=== PATIENT | female | born 1965 | race African-American/Black ===

== ENCOUNTER 2017-05-11 07:42 | Emergency (ER) | payer OTHER ==
[~2017-05-11] VITALS: Ht 165.1 cm; Wt 94.1 kg
[2017-05-11 07:46] VITALS: Ht 165.1 cm; Wt 94.1 kg
[2017-05-11] MEDS ORDERED: SOD CHLORIDE 0.9% 1,000 ML IV STA (08:02)
[2017-05-11] MEDS ORDERED: DIPHENHYDRAMINE 50 MG INJ IV STA (08:02)
[2017-05-11] MEDS ORDERED: METOCLOPRAMIDE 10 MG INJ IV STA (08:02)
--- NOTE | 2017-05-11 08:59 | RADRPT ---
PROCEDURE: CT Brain without contrast. CLINICAL INDICATION: Pain, headache TECHNIQUE: Routine CT scan of the brain was performed on a high resolution multi detector scanner without intravenous contrast. One or more of the following dose reduction techniques were used: Auto mated exposure control; Adjustment of the mA and/or kV according to patient size; Use of iterative r econstruction technique. CTDI = 43 mGy. DLP = 823 mGy-cm. DICOM images are available. COMPARISON: No prior relevant examinations are available for comparison. FINDINGS: Hemorrhage: No evidence of intracranial hemorrhage. Acute ischemic changes: No evidence of acute ischemic changes. Mass effect: None. Parenchymal volume: Within normal limits for age. Ventricular system: Concordant with parenchymal volume. Cavum of the septum pellucidum is noted. Chronic changes: Mild chronic-appearing microvascular ischemic changes of the supratentorial white m atter. Extracranial soft tissues: Unremarkable. Calvarium: No fractures. Paranasal sinuses: Visualized paranasal sinuses are clear. Mastoid air cells: Visualized mastoid air cells are clear. IMPRESSION: No acute intracranial abnormalities. Mild chronic-appearing microvascular ischemic changes of the supratentorial white matter. RPTAT: AADD .Trev De La O MD, Date Time Electronically viewed and signed by .Trev De La O MD, on 05/11/2017 08:59 .Naomie/
--- NOTE | 2017-05-11 09:15 | RADRPT ---
PROCEDURE: XR Chest. CLINICAL INDICATION: Dyspnea. TECHNIQUE: XR CHEST AP PORTABLE COMPARISON: None available. FINDINGS: The lungs are clear. No focal opacification is seen. No pneumothorax or pleural effusion is seen. The cardiomediastinal silhouette is unremarkable. The osseous structures are grossly unremarkable. IMPRESSION: No evidence of acute cardiopulmonary disease. RPTAT: JJ .Khurram Bautista MD, MD Date Time Electronically viewed and signed by .Khurram Bautista MD, on 05/11/2017 09:14 .A/
[2017-05-11 11:53] LABS: BASOPHILS % 0.7 % (0.0-2.0); EOSINOPHILS # 0.1 10^3/ul (0.0-0.5); EOSINOPHILS % 2.4 % (0.0-7.0); HEMATOCRIT 35.2 % (37.0-47.0); HEMOGLOBIN 10.7 g/dl (12.0-16.0); LYMPHOCYTES # 2.3 10^3/ul (0.8-2.9); LYMPHOCYTES % 42.9 % (15.0-51.0); MEAN CORPUSCULAR HEMOGLOBIN 24.4 pg (29.0-33.0); MEAN CORPUSCULAR HGB CONC 30.4 g/dl (32.0-37.0); MEAN CORPUSCULAR VOLUME 80.2 fl (82.0-101.0); MEAN PLATELET VOLUME 8.8 fl (7.4-10.4); MONOCYTE # 0.4 10^3/ul (0.3-0.9); MONOCYTES % 6.8 % (0.0-11.0); NEUTROPHIL # 2.5 10^3/ul (1.6-7.5); PLATELET COUNT 435 10^3/UL (140-415); RED BLOOD COUNT 4.39 10^6/ul (4.20-5.40); RED CELL DISTRIBUTION WIDTH 13.9 % (11.5-14.5); WHITE BLOOD COUNT 5.4 10^3/ul (4.8-10.8)
[2017-05-11 12:18] LABS: ANION GAP 11 (8-16); BLOOD UREA NITROGEN 9 mg/dl (7-20); CALCIUM 9.4 mg/dl (8.4-10.2); CARBON DIOXIDE 30 mmol/L (21-31); CHLORIDE 104 mmol/L (97-110); CREATININE 0.65 mg/dl (0.44-1.00); GLUCOSE 91 mg/dl (70-220); POTASSIUM 4.3 mmol/L (3.5-5.1); SODIUM 141 mmol/L (135-144)
[2017-05-11 12:32] LABS: TROPONIN-I < 0.012 ng/ml (0.00-0.12)
[2017-05-11] MEDS ORDERED: HYDR25TA6 PO (12:33)
[2017-05-11] MEDS ORDERED: FIORICET PO (12:34)
[2017-05-11 12:54] VITALS: BP 110/73; PULSE 75; RESP 14
--- NOTE | 2017-05-11 14:04 | ERD ---
ER Documentation Chief Complaint Chief Complaint dizziness and neck pain x4 days HPI This is a 52-year-old female history of borderline hypertension, migraine headache. The patient presents with at least 4 days of elevated blood pressure. Today upon arrival in the 200s. She is describing headache that is gradual onset bandlike with bilateral base of the neck pain that is very consistent with her migraine headaches in the past. She takes a triptan at home. She denies any chest pain or pleuritic pain no exertional symptoms fevers or chills. ROS All systems reviewed and are negative except as per history of present illness. Medications Home Meds Active Scripts Acetamin/Butalbital/Caffeine* (Fioricet*) [id number] Tab, 1 TAB PO Q6H Y for PAIN, #30 TAB Prov:CELESTE PERALES MD 05/11/17 Hydrochlorothiazide* (Hydrochlorothiazide*) 25 Mg Tab, 25 MG PO DAILY, #30 TAB Prov:CELESTE PERALES MD 05/11/17 Allergies Allergies: Coded Allergies: No Known Allergy (Unverified , 05/11/17) PMhx/Soc History of Surgery: Yes (ectopic preganancy) Anesthesia Reaction: No Hx Neurological Disorder: No Hx Respiratory Disorders: No Hx Cardiac Disorders: No Hx Psychiatric Problems: No Hx Miscellaneous Medical Probl: No Hx Alcohol Use: No Hx Substance Use: No Hx Tobacco Use: No Smoking Status: Never smoker FmHx Family History: No diabetes Physical Exam Vitals Vital Signs Date Time Temp Pulse Resp B/P Pulse Ox O2 Delivery O2 Flow Rate FiO2 05/11/17 12:54 75 14 110/73 100 Room Air 05/11/17 10:36 70 20 150/100 100 Room Air 05/11/17 09:29 67 18 153/82 100 Room Air 05/11/17 07:46 97.6 82 18 191/88 100 Physical Exam General: Well developed, well nourished, no acute distress Head: Normocephalic, atraumatic. Eyes: Pupils equally reactive, EOM intact ENT: Moist mucous membranes Neck: Supple, no lymphadenopathy Respiratory: Lungs clear bilaterally, no distress Cardiovascular: RRR, no murmurs, rubs, or gallops Abdominal: Soft, non-tender, non-distended, no peritoneal signs : Deferred MSK: No edema, no unilateral swelling, 5/5 strength Neurologic: Alert and oriented, moving all extremities, normal speech, no focal weakness, no cerebellar signs steady gait, normal rapid alternating movements Skin: No rash Psych: Normal mood Result Diagram: 05/11/17 1120 05/11/17 1120 Results 24 hrs Laboratory Tests Test 05/11/17 11:20 White Blood Count 5.410^3/ul Red Blood Count 4.3910^6/ul Hemoglobin 10.7g/dl Hematocrit 35.2% Mean Corpuscular Volume 80.2fl Mean Corpuscular Hemoglobin 24.4pg Mean Corpuscular Hemoglobin Concent 30.4g/dl Red Cell Distribution Width 13.9% Platelet Count 62576^3/UL Mean Platelet Volume 8.8fl Neutrophils % 47.0% Lymphocytes % 42.9% Monocytes % 6.8% Eosinophils % 2.4% Basophils % 0.7% Nucleated Red Blood Cells % 0.0/100WBC Neutrophils # 2.510^3/ul Lymphocytes # 2.310^3/ul Monocytes # 0.410^3/ul Eosinophils # 0.110^3/ul Basophils # 0.010^3/ul Nucleated Red Blood Cells # 0.010^3/ul Sodium Level 141mmol/L Potassium Level 4.3mmol/L Chloride Level 104mmol/L Carbon Dioxide Level 30mmol/L Anion Gap 11 Blood Urea Nitrogen 9mg/dl Creatinine 0.65mg/dl Glucose Level 91mg/dl Calcium Level 9.4mg/dl Troponin I < 0.012ng/ml Current Medications Medications (Trade) Dose Ordered Sig/Tonja Route PRN Reason Start Time Stop Time Status Last Admin Dose Admin Sodium Chloride (NS) 1,000 ml @ 1,000 mls/hr Q1H STAT IV 05/11/17 08:02 05/11/17 09:01 DC 05/11/17 09:18 Metoclopramide HCl (Reglan) 10 mg ONCE STAT IV 05/11/17 08:02 05/11/17 08:03 DC 05/11/17 09:19 Diphenhydramine HCl (Benadryl) 25 mg ONCE STAT IV 05/11/17 08:02 05/11/17 08:03 DC 05/11/17 09:19 Procedures/MDM EKG, MONITORS, & DIAGNOSTIC IMAGING: EKG: I reviewed and interpreted a 12-lead EKG. Rhythm: Normal sinus rhythm Ectopy: None Intervals: No abnormalities ST segments: No elevations or depressions T waves: No contiguous inversions Chest x-ray: I reviewed and interpreted a 1 view of the chest Mediastinum: No enlargement Cardiac silhouette: No cardiomegaly Airspace: Clear lung tinoco bilaterally without evidence of pneumothorax Bones: No evidence of fracture CT brain: No evidence of acute intracranial process LAB INTERPRETATION: Normal laboratory testing and negative troponin MEDICAL DECISION MAKING: The patient presents with elevated blood pressure in the 200s with symptoms consistent with hypertensive urgency. Her headache is similar to headaches in the past. The patient's headache is unlikely related to serious etiology. The patient does not exhibit any clinical signs or symptoms, and has no risk factors to suggest headache etiology such as subarachnoid hemorrhage, acute vertebral or carotid dissection, intracranial mass, epidural, subdural hematoma , dural venous sinus thrombosis, giant cell arteritis, or pseudotumor cerebri. The patient has had similar headaches given her elevated blood pressure I do believe CT imaging of the brain would be appropriate. She has no chest pain or cardiac signs or symptoms. ER COURSE: The patient was treated with IV fluids Reglan and Benadryl with complete resolution of her headache. Her blood pressure improved without intervention. It sounds like the patient has had prolonged elevated blood pressure at home. Consider diagnosis of essential hypertension. I believe initiation of antihypertensive medication would be reasonable. I discussed this with the patient and family. They are agreeable. I kept the patient and/or family informed of laboratory and diagnostic imaging results throughout the emergency room course. DISPOSITION PLAN: We discussed follow up with the patient's primary care doctor within 24 to 48 hours as needed. We also discussed return to the emergency room for worsening symptoms or worsening condition. Outpatient referral: [None required] Discharge Medications: Hydrochlorothiazide 25 mg once daily Departure Diagnosis: Primary Impression: Hypertensive urgency Additional Impression: Headache Headache type: unspecified Headache chronicity pattern: chronic headache Intractability: not intractable Qualified Code: R51 - Chronic nonintractable headache, unspecified headache type Condition: Stable Patient Instructions: Hypertension, New (Begin Treatment) Referrals: COMM[facility]ITY CLINICS YOU HAVE RECEIVED A MEDICAL SCREENING EXAM AND THE RESULTS INDICATE THAT YOU DO NOT HAVE A CONDITION THAT REQUIRES URGENT TREATMENT IN THE EMERGENCY DEPARTMENT. FURTHER EVALUATION AND TREATMENT OF YOUR CONDITION CAN WAIT UNTIL YOU ARE SEEN IN YOUR DOCTORS OFFICE WITHIN THE NEXT 1-2 DAYS. IT IS YOUR RESPONSIBILITY TO MAKE AN APPOINTMENT FOR FOLOW-UP CARE. IF YOU HAVE A PRIMARY DOCTOR --you should call your primary doctor and schedule an appointment IF YOU DO NOT HAVE A PRIMARY DOCTOR YOU CAN CALL OUR PHYSICIAN REFERRAL HOTLINE AT IF YOU CAN NOT AFFORD TO SEE A PHYSICIAN YOU CAN CHOSE FROM THE FOLLOWING [facility] [address] [facility] [address] [facility] [address] [facility] [address] [facility] [address] [facility]. [facility] [address] [facility] [facility] YOU HAVE RECEIVED A MEDICAL SCREENING EXAM AND THE RESULTS INDICATE THAT YOU DO NOT HAVE A CONDITION THAT REQUIRES URGENT TREATMENT IN THE EMERGENCY DEPARTMENT. FURTHER EVALUATION AND TREATMENT OF YOUR CONDITION CAN WAIT UNTIL YOU ARE SEEN IN YOUR DOCTORS OFFICE WITHIN THE NEXT 1-2 DAYS. IT IS YOUR RESPONSIBILITY TO MAKE AN APPOINTMENT FOR FOLOW-UP CARE. IF YOU HAVE A PRIMARY DOCTOR --you should call your primary doctor and schedule and appointment IF YOU DO NOT HAVE A PRIMARY DOCTOR YOU CAN CALL OUR PHYSICIAN REFERRAL HOTLINE AT . IF YOU CAN NOT AFFORD TO SEE A PHYSICIAN YOU CAN CHOSE FROM THE FOLLOWING [facility] INSTITUTIONS: [facility] [address] [place] [address] [facility] [address] [place] [address] [facility] [address] [place] [address] Additional Instructions: Call your primary care doctor TOMORROW for an appointment during the next 1 WEEK.Tell the pocket secretary assembler that you were referred from this facility.See the doctor sooner or return here if your condition worsens before your appointment time. CELESTE PERALES MD May 11, 2017 14:04
== END 2017-05-11 12:56 | disposition home or self-care (01) ==
LOC: E/R 07:42
DX: I16.0 Hypertensive urgency (principal); R51 Headache
CPT/HCPCS: 36415; 70450; 71010; 80048; 84484; 85025; 93005; 96374; 96375; J1200; J2765; J7030; Z7502

== ENCOUNTER 2018-03-01 10:49 | Emergency (ER) | END 2018-03-01 14:17 | disposition home or self-care (01) ==

== ENCOUNTER 2018-06-15 08:50 | Emergency (ER) | payer OTHER ==
[~2018-06-15] VITALS: Wt 100.0 kg
[~2018-06-15 08:50] MED LIST: FIORICET PO; HYDR25TA6 PO; IBUP-1561 PO
[2018-06-15 08:52] VITALS: BP 171/89; PULSE 89; RESP 18
[2018-06-15] MEDS ORDERED: KETOROLAC 30 MG INJ IM STA (09:43)
[2018-06-15] MEDS ORDERED: METHOCARBAMOL 750 MG TAB PO ONE (10:00)
[2018-06-15] MEDS ORDERED: DEXAMETHASONE 10 MG/ML 1 ML INJ IM ONE (10:00)
[2018-06-15] MEDS ORDERED: METH750T93 PO (11:18)
--- NOTE | 2018-06-15 17:13 | ERD ---
ER Documentation Chief Complaint Chief Complaint CHRONIC LOWER BACK PAIN HPI 53-year female presents for low back pain times 1 month. Patient states that she has a history of low back pain however she states that the last the pain has been getting a little bit worse. She has has history of treatment with her chiropractor. The pain is worse with examination. She notes that the pain is 10 out of 10. She states that there is radiation to the bilateral legs. Denies fevers or chills. Denies any recent back procedures. Denies any recent infection. No history of cancer noted. She took Motrin 800 mg at home without relief. Denies loss of bowel or bladder function. No other complaints. ROS All systems reviewed and are negative except as per history of present illness. Medications Home Meds Active Scripts Methocarbamol* (Robaxin*) 750 Mg Tablet, 750 MG PO TID PRN for back pain, #30 TAB Prov:PIPPA NOE DO 06/15/18 Ibuprofen* (Motrin*) 400 Mg Tab, 400 MG PO Q8, #30 TAB Prov:KATHE PAYTON MD 03/01/18 Acetamin/Butalbital/Caffeine* (Fioricet*) [id number] Tab, 1 TAB PO Q6H PRN for PAIN, #30 TAB Prov:CELESTE PERALES MD 05/11/17 Hydrochlorothiazide* (Hydrochlorothiazide*) 25 Mg Tab, 25 MG PO DAILY, #30 TAB Prov:CELESTE PERALES MD 05/11/17 Allergies Allergies: Coded Allergies: No Known Allergy (Unverified , 06/15/18) PMhx/Soc History of Surgery: Yes (tubal igation, c section x 1,right ankle) Anesthesia Reaction: No Hx Neurological Disorder: No Hx Respiratory Disorders: No Hx Cardiac Disorders: No Hx Psychiatric Problems: No Hx Miscellaneous Medical Probl: No Hx Alcohol Use: No Hx Substance Use: No Hx Tobacco Use: No Smoking Status: Never smoker Physical Exam Vitals Temperature 98.1, pulse 89, respiration 18, blood pressure 171/89 Physical Exam Const: No acute distress Resp: Clear to auscultation bilaterally Cardio: Regular rate and rhythm, no murmurs, bilateral dorsalis pedis pulses intact Abd: Soft, non tender, non distended. Normal bowel sounds Skin: No petechiae or rashes Back: There is low back lumbar paraspinal muscle tenderness palpation Ext: No cyanosis, or edema, bilateral lower extremity muscle strength 4 out of 5 mostly due to pain. Neur: Awake and alert, bilateral lower sugar sensation intact, Psych: Normal Mood and Affect Results 24 hrs Current Medications Medications Dose Sig/Tonja Start Time Status Last (Trade) Ordered Route PRN Stop Time Admin Dose Reason Admin Ketorolac 30 mg ONCE STAT 06/15/18 DC 06/15/18 Tromethamine IM 09:43 09:51 (Toradol) 06/15/18 09:45 10 mg ONCE ONCE 06/15/18 DC 06/15/18 Dexamethasone IM 10:00 09:50 (Decadron) 06/15/18 10:01 750 mg ONCE ONCE 06/15/18 DC 06/15/18 Methocarbamol PO 10:00 10:25 (Robaxin) 06/15/18 10:01 Procedures/MDM Medical Decision Making: Differential diagnosis includes but not limited to muscle strain, ligamentous sprain, epidural abscess, osteomyelitis, osteoarthritis, herniated disc, compression fracture, aortic aneurysm, kidney stone, pyelonephritis, pancreatitis. Patient appeared well on physical examination. Nontoxic appearing. Imaging: Lumbar x-ray showed No acute osseous abnormalities, Lower lumbar degenerative disc disease with mild grade 1 anterolisthesis at L5-S1. ED course: Patient was given Toradol, Robaxin, Decadron. Symptoms improved with treatment. Prescription(s): Patient given prescription for Robaxin. Advised to continue to take Motrin which patient has at home as needed for pain. Advised to use warm compresses. Patient advised to follow up with PCP in 1-2 days. Patient advised to return to ED for new or worsening symptoms. Patient stable on discharge from the ED. Disclaimer: Inadvertent spelling and grammatical errors are likely due to EHR/dictation software use and do not reflect on the overall quality of patient care. Also, please note that the electronic time recorded on this note does not necessarily reflect the actual time of the patient encounter. Departure Diagnosis: Primary Impression: Back pain Back pain location: low back pain Chronicity: unspecified Back pain laterality: unspecified Sciatica presence: with sciatica Sciatica laterality: bilateral sciatica Qualified Codes: M54.42 - Lumbago with sciatica, left side; M54.41 - Lumbago with sciatica, right side Condition: Fair Patient Instructions: Back Pain W/ Sciatica Referrals: [facility] YOU HAVE RECEIVED A MEDICAL SCREENING EXAM AND THE RESULTS INDICATE THAT YOU DO NOT HAVE A CONDITION THAT REQUIRES URGENT TREATMENT IN THE EMERGENCY DEPARTMENT. FURTHER EVALUATION AND TREATMENT OF YOUR CONDITION CAN WAIT UNTIL YOU ARE SEEN IN YOUR DOCTORS OFFICE WITHIN THE NEXT 1-2 DAYS. IT IS YOUR RESPONSIBILITY TO MAKE AN APPOINTMENT FOR FOLOW-UP CARE. IF YOU HAVE A PRIMARY DOCTOR --you should call your primary doctor and schedule an appointment IF YOU DO NOT HAVE A PRIMARY DOCTOR YOU CAN CALL OUR PHYSICIAN REFERRAL HOTLINE AT IF YOU CAN NOT AFFORD TO SEE A PHYSICIAN YOU CAN CHOSE FROM THE FOLLOWING [facility] [address] [facility] [address] [facility] [address] [facility] [address] [facility] [address] [facility]. [facility]. [address] Additional Instructions: Call your primary care doctor TOMORROW for an appointment during the next 1-2 days.See the doctor sooner or return here if your condition worsens before your appointment time. PIPPA NOE DO Jun 15, 2018 17:13
== END 2018-06-15 11:19 | disposition home or self-care (01) ==
LOC: FTE 08:50
DX: M54.42 Lumbago with sciatica, left side (principal); M54.41 Lumbago with sciatica, right side
CPT/HCPCS: 72100; J1100; J1885; Z7610; 96372

== ENCOUNTER 2019-02-19 16:22 | Emergency (ER) | payer OTHER ==
[~2019-02-19] VITALS: Wt 106.3 kg
[~2019-02-19 16:22] MED LIST changes: +BUTA1CAP38 PO; +IBUP800T48 PO; +METH750T93 PO
[2019-02-19] MEDS ORDERED: PROCHLORPERAZINE 10 MG INJ IV STA (16:40)
[2019-02-19] MEDS ORDERED: DIPHENHYDRAMINE 50 MG INJ IV STA (16:40)
[2019-02-19] MEDS ORDERED: SOD CHLORIDE 0.9% 1,000 ML IV STA (16:40)
[2019-02-19] MEDS ORDERED: SOD CHLORIDE 0.9% 100 ML ONE (18:12)
[2019-02-19] MEDS ORDERED: IOHEXOL 100 ML ONE (18:12)
[2019-02-19 19:29] VITALS: BP 137/83; PULSE 81; RESP 20
== END 2019-02-19 19:41 | disposition home or self-care (01) ==
LOC: E/R 16:22
DX: I16.0 Hypertensive urgency (principal); G43.909 Migraine, unspecified, not intractable, without status migrainosus; S66.201A Unspecified injury of extensor muscle, fascia and tendon of right thumb at wrist and hand level, initial encounter; X58.XXXA Exposure to other specified factors, initial encounter; Y92.9 Unspecified place or not applicable
CPT/HCPCS: 29130; 36415; 70450; 70496; 70498; 73140; 80048; 81025; 85025; 85610; 85730; 96374; 96375; J0780; J1200; J7030; Q9967; Z7502; Z7610